=== PATIENT | female | born 1960 | race Caucasian/White ===

== ENCOUNTER 2016-07-12 05:53 | Day surgery (SDC) | payer OTHER ==
[2016-07-12] MEDS ORDERED: LIDOCAINE 1% 5 ML SDV ONE (06:20)
[2016-07-12] MEDS ORDERED: fentaNYL 100 MCG/2 ML INJ ONE (07:02)
[2016-07-12] MEDS ORDERED: PROPOFOL 200 MG/20 ML VIAL ONE (07:02)
[2016-07-12] MEDS ORDERED: MIDAZOLAM 2 MG/2 ML VIAL ONE (07:11)
[2016-07-12] MEDS ORDERED: ROCURONIUM 50 MG/5 ML VIAL ONE (07:12)
[2016-07-12] MEDS ORDERED: BUPIVACAINE/EPI 0.5% 30 ML SDV ONE (07:14)
[2016-07-12] MEDS ORDERED: SKIN ADHESIVE (DERMABOND) 1 EACH TP ONE (07:14)
[2016-07-12] MEDS ORDERED: epHEDrine SULFATE 10 MG/ML SYR ONE (07:44)
[2016-07-12] MEDS ORDERED: KETOROLAC 30 MG/1 ML SDV ONE (07:51)
[2016-07-12] MEDS ORDERED: PHENYLEPHRINE HCL 100 MCG/ML SYR ONE (07:52)
[2016-07-12] MEDS ORDERED: ONDANSETRON 4 MG/2 ML VIAL ONE ×2 (08:01)
[2016-07-12] MEDS ORDERED: DEXAMETHASONE 4 MG/ML VIAL ONE ×2 (08:01)
[2016-07-12] MEDS ORDERED: SUCCINYLCHOLINE CHLORIDE*ANESTHESIA ONLY*200 MG/10 ML SYR IVP ONE (09:18)
--- NOTE | 2016-07-12 10:03 | GOP ---
[f rep st] OPERATIVE REPORT DATE OF OPERATION: 07/12/2016 SURGEON: Jason Mitchell MD CURB WORKER: Dee Dawson PA-C ANESTHESIA: General. ANESTHESIOLOGIST: Dr. Wills. PREOPERATIVE DIAGNOSIS: Primary hyperparathyroidism. POSTOPERATIVE DIAGNOSIS: Primary hyperparathyroidism. PROCEDURE PERFORMED: Parathyroidectomy with intraoperative PTH monitoring. FINDINGS: INDICATIONS: A 55-year-old female with primary hyperparathyroidism. Preoperative localization studi es are suggestive of a left lower neck clinical adenoma. She is undergoing surgical excision at this time. Risks and benefits explained of bleeding, infection, persistent and recurrent hyperparathyroi dism, hypoparathyroidism, recurrent laryngeal nerve injury, need for additional surgical intervention . All questions were entertained. She desires to proceed. DESCRIPTION OF PROCEDURE: General anesthesia was induced. The neck was preinjected with 0.5% Marcai ne with epinephrine. A low collar incision was created. Platysma and strap muscles were a long their midline raphe. The thyroid lobe was multinodular in appearance, otherwise soft. The left lobe was elevated up in the operative field. Immediately evident just inferior to the lowermost asp ect of the thyroid lobe within the thyrothymic ligament was a clinically enlarged lower pole parathyr oid adenoma. This was divided back to its feeding vasculature, along with an accompanying exophytic thyroid nodule. These were sent for permanent sectioning. Further neck exploration revealed normal recurrent laryngeal nerve muscle junction with normal-appearing soft small gland just anterior and in ferior to the nerve muscle junction. The contralateral neck was explored. Normal lower pole gland w as identified in a subcapsular location. This was small and soft in nature. A normal-appearing uppe r pole gland was also identified in a mirror image location. Preoperative PTH values were 87. The 5 , 10, and 15-minute values were 28, 15, and 12. Satisfactory hemostasis had been assured throughout bilateral cavities. No suspicious lateral neck adenopathy was present. Neck was closed in layers wi th absorbable sutures by Dermabond. The patient was taken to recovery uneventfully. /[id number]/MODL
== END 2016-07-12 10:50 | disposition home or self-care (01) ==
LOC: FSGY 05:53
PROVIDERS: ATTEND Surgery
PROC: 0GBG0ZX Excision of Left Thyroid Gland Lobe, Open Approach, Diagnostic (ICD-10-PCS; 2016-07-12)
PROC: 0GTR0ZZ Resection of Parathyroid Gland, Open Approach (ICD-10-PCS; principal; 2016-07-12 07:15)
DX: E21.0 Primary hyperparathyroidism (principal); D34 Benign neoplasm of thyroid gland; D35.1 Benign neoplasm of parathyroid gland; K21.9 Gastro-esophageal reflux disease without esophagitis; E55.9 Vitamin D deficiency, unspecified
CPT/HCPCS: J0330; J1100; J1885; J2250; J2370; J2405; J2704; J3010

== ENCOUNTER → 2017-03-17 | Outpatient (CLI) | payer OTHER | LOC: CIMAGING 09:18 | PROVIDERS: ATTEND Internal Medicine | DX: R06.02 Shortness of breath (principal); R06.09 Other forms of dyspnea; Z87.01 Personal history of pneumonia (recurrent) | CPT/HCPCS: 71250-PO ==

== ENCOUNTER → 2017-05-24 | Outpatient (CLI) | payer OTHER | LOC: CIMAGING 07:16 | PROVIDERS: ATTEND Internal Medicine | DX: Z12.31 Encounter for screening mammogram for malignant neoplasm of breast (principal); Z80.3 Family history of malignant neoplasm of breast | CPT/HCPCS: G0202 ==

== ENCOUNTER → 2017-07-26 | Outpatient (CLI) | payer OTHER ==
--- NOTE | 2017-07-26 15:57 | CPR ---
[f rep st] NONINVASIVE CARDIAC PROCEDURE REPORT DATE OF PROCEDURE: 07/26/2017 PROCEDURE PERFORMED: Nuclear treadmill stress test. REASON FOR TEST: Short of breath and chest pain. She typically becomes short of breath with exertion or going up stairs. ORDERING PHYSICIAN: This test was ordered by her primary care physician, Dr. Ball. BASELINE: Resting EKG shows a sinus rhythm with an incomplete right bundle branch block. No arrhythmias are noted. Resting heart rate 68. Resting blood pressure 130/78. EXERCISE PORTION: She was exercised according to the Adrian protocol for a total of 7 minutes. She reached a maximal heart rate of 148, which was 95% maximal. Maximal blood pressure 216/100. She has no chest pain. She did continue to use oxygen throughout the test. At 2 minutes into the test, she desaturated to 86%, oxygen was put on at 2 liters. At 3 minutes, she remained at 86% and oxygen was increased to 3 liters. She maintained her oxygen saturation between 93% and 99% through the test. There were no ischemic changes or chest pain during exercise. RECOVERY: She did spontaneously recover. Hypertensive response to exercise. Her blood pressure came down to 150/98. Resting heart rate 83. Oxygen was taken off and her oxygen saturation was at 93%. At this time, she currently is stable. She will follow up with her primary care physician for results. /[id number]/MODL MTDD
== END ==
LOC: FIMAGING 13:58
PROVIDERS: ATTEND Internal Medicine
DX: R06.00 Dyspnea, unspecified (principal); R07.9 Chest pain, unspecified
CPT/HCPCS: A9500

== ENCOUNTER → 2017-09-27 | Outpatient (CLI) | payer OTHER ==
[~2017-09-27] MED LIST: IOPAMIDOL (ISOVUE-370) 150 ML BTL IV ONE
== END ==
LOC: FIMAGING 12:23
PROVIDERS: ATTEND Internal Medicine Cardiovascular Disease
DX: R06.09 Other forms of dyspnea (principal)
CPT/HCPCS: Q9967